=== PATIENT | female | born 1970 | race Caucasian/White ===

== ENCOUNTER 2024-03-23 19:37 | Inpatient (IN) | payer OTHER, SELFPAY ==
[2024-03-23 20:00] VITALS: BP 138/82; PULSE 100; RESP 16; TEMP 36.3; O2SAT 96
[2024-03-23 21:16] VITALS: BMI 23.4
[2024-03-23 21:22] LABS: Alanine Aminotransferase 41 U/L (0-31); Albumin Level 4.2 g/dL (3.5-5.0); Alkaline Phosphatase 81 U/L (39-117); Anion Gap 11 (12-20); Aspartate Amino Transferase 36 U/L (5-31); Bilirubin Total 0.7 mg/dL (0.0-1.0); Blood Urea Nitrogen 15 mg/dL (9-16); Calcium 9.8 mg/dL (8.4-10.2); Carbon Dioxide 25 mmol/L (22-29); Chloride 104 mmol/L (96-108); Creatinine Clr Calc Pharmacy 68.3; Estimated Glomerular Filt Rate > 60; Glucose Random 123 mg/dL (60-115); Potassium 3.8 mmol/L (3.3-5.1); Sodium 136 mmol/L (135-145); Total Protein 7.7 g/dL (6.5-8.0)
--- NOTE | 2024-03-23 23:02 | PC.ADMIT ---
IS A 53 YEAR OLD WHITE [place] FEMALE, HETEROSEXUAL, WHO WAS BIBA FROM [facility] IN [place] AFTER SA VIA TOXIC INGESTION. ARRIVED ON THE UNIT @ 1950 VIA STRECTHER, A/O X 4, AMBULATORY WITH STEADY GAIT, ON A CV. SHE WAS COOPERATIVE WITH ADMISSION ASSESSMENT, DENIES SI/AVH, STATED THIS IS HER 1ST IPLOC AND FEELS THAT SHE DOESN'T NEED THIS LEVEL OF CARE, [facility]. I NEED HELP WITH MY SUBSTANCE ABUSE. STATED LIFE STRESS INCREASED AND SHE FELT OVERWHELMED , NO SIGN OF WITHDRAWAL. MD DELEON AND HOSPITALIST NOTIFIED OF ADMIT. PLACED ON 15 MIN UNIT SAFETY OBSERVATION.
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
--- NOTE | 2024-03-24 11:18 | HO.PM.IMCN ---
History of Present Illness Data of Consult Service Date: 03/24/24 Primary Care Provider: Unknown Physician HPI Reason for consult: Admission H&P Pt is a 53-year-old female with no known significant PMH not on home medications?who is admitted to [facility] psychiatry unit for increasing depression with SI attempt by overdosing on home medication. Pt was apparently found unresponsive by family with a bottle of Benadryl 20 filling mg pills and vodka next to her. Unknown amount of pills and vodka consumed. Medical consult for admission H&P. Pt seen and evaluated on the unit where she denies any past and medical history. Pt reports follows regularly with a PCP for annual exams, but is not on any home medications. Reports kidd both tired and exhausted by her recent experience, but otherwise denies any acute medical complaints. No fever, chills, nausea, vomiting, diarrhea, or abdominal?pain. Denies shortness or breath or difficulty breathing. No cough. Denies chest pain/pressure, palpitations. No headache or acute vision changes. Review of Systems Review of Systems: Pt has no acute medical complaints at this time [facility] Medical History (Updated 03/24/24 @ 15:28 by SASHA Perez) Alcohol dependence Social History Household Members: Spouse and Children Housing: House Do you presently have visiting nurse or other home services: No Patient Tobacco Use Status: Never used Tobacco e-Cigarette/Vaping Use: Never Used Second Hand Smoke Exposure: No service: No Sexual orientation: Straight/Heterosexual Meds Allergies Allergy/AdvReac Type Severity Reaction Status Date / Time Unable to Assess Allergy Verified 03/23/24 19:54 Active Medications: Current Medications Acetaminophen (Acetaminophen 325 Mg Tablet) 650 mg PO Q6H PRN PRN Reason: Headache/Pain Mild Scale (1-3) Al Hydroxide/Mg Hydroxide (Magnesium Hydrox/Alum Hydrox 30 Ml Oral.Susp) 30 ml PO Q6H PRN PRN Reason: Heartburn/Nausea Hydroxyzine HCl (Hydroxyzine Hcl 25 Mg Tablet) 25 mg PO Q6H PRN PRN Reason: Anxiety Magnesium Hydroxide (Milk Of Magnesia 30 Ml Oral.Susp) 30 ml PO DAILY PRN PRN Reason: Constipation Nicotine Polacrilex (Nicotine Polacrilex 2 Mg Gum) 4 mg BUCCAL Q2H PRN PRN Reason: Nicotine Cravings Trazodone HCl (Trazodone Hcl 50 Mg Tablet) 50 mg PO BEDTIME MRX1 PRN PRN Reason: Insomnia Home Medications ?Medication ?Instructions ?Recorded ?Confirmed ?Last Taken ?Type No Known Home Meds 03/23/24 03/23/24 Unknown History Physical Exam Vital Signs and Narrative: Vital Signs: Last Vital Signs Temp 97.4 F 03/23/24 20:00 Pulse 100 03/23/24 20:00 Resp 16 03/23/24 20:00 BP 138/82 03/23/24 20:00 Pulse Ox 96 03/23/24 20:00 O2 Del Method Room Air 03/23/24 20:00 BMI result Body Mass Index 23.4 General: AOx3, no acute distress Resp: CTA bilaterally CVS: S1, S2, RRR GI: +BS, NT, no distention Skin: Warm, dry Neuro: Cranial nerves II-XII grossly intact bilaterally. Motor grossly intact bilaterally Extremities: No edema Psych: Appropriate affect Results Labs 03/23/24 20:53 Labs: Laboratory Results - last 24 hr 03/23/24 20:53 Anion Gap 11 L Estim Creat Clear Calc 68.3 Estimated GFR > 60 Random Glucose 123 H Calcium 9.8 Total Bilirubin 0.7 AST 36 H ALT 41 H Alkaline Phosphatase 81 Total Protein 7.7 Albumin 4.2 Assessment and Plan (1) Medical clearance for psychiatric admission: Status: Acute Plan Pt is a 53-year-old female with no known significant PMH not on home medications?who is admitted to [facility] psychiatry unit for increasing depression with SI attempt by overdosing on home medication. Pt was apparently found unresponsive by family with a bottle of Benadryl 20 filling mg pills and vodka next to her. Unknown amount of pills and vodka consumed. Medical consult for admission H&P. Mood disorder Plan as per Psychiatry Alcohol use disorder Plan as per Addiction Medicine/psychiatry Pt otherwise has no acute medical complaints or chronic medical conditions. Will sign off for now. Thank you for allowing us to participate in the care of this pt. Please re-consult if any acute issue or need arises.
[2024-03-24 13:01] LABS: Estimated Average Glucose 100 mg/dL; Hemoglobin A1C 127.1254 umol/L; Hemoglobin A1c % 5.1 % (<6.0); Total Hemoglobin (HGBA1C) 3947.2735 umol/L
[2024-03-24 13:07] LABS: Cholesterol 251 mg/dL (<200); HDL Cholesterol 81 mg/dL (>40); LDL Cholesterol Calculated 144 mg/dL (<100); Triglycerides 132 mg/dL (<150)
[2024-03-24 13:24] LABS: Free T4 (Free Thyroxine) 1.03 ng/dL (0.71-1.85); Thyroid Stimulating Hormone 0.57 uIU/mL (0.32-4.0)
[2024-03-24 13:38] LABS: Folate 15.8 ng/mL (> or = 4.0); Vitamin B12 > 2000 pg/mL (200-900)
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
== END 2024-03-24 16:55 | disposition home or self-care (01) | DRG 882 ==
PROVIDERS: Admitting Provider Psychiatry & Neurology Psychiatry; Visit Provider Psychiatry & Neurology Psychiatry
DX: F43.25 Adjustment disorder with mixed disturbance of emotions and conduct (principal); F10.20 Alcohol dependence, uncomplicated; Z91.51 Personal history of suicidal behavior
CPT/HCPCS: 36415; 80053; 80061; 82607; 82746; 83036; 84439; 84443

== ENCOUNTER → 2024-03-23 19:37 | Outpatient (BNV) | payer OTHER, SELFPAY | PROVIDERS: Admitting Provider Psychiatry & Neurology Psychiatry; Visit Provider Student in an Organized Health Care Education/Training Program | DX: Z00.8 Encounter for other general examination (principal) | CPT/HCPCS: 99429 ==

== ENCOUNTER → 2024-03-23 19:37 | Outpatient (BNV) | payer OTHER, SELFPAY | PROVIDERS: Admitting Provider Psychiatry & Neurology Psychiatry; Visit Provider Psychiatry & Neurology Psychiatry | DX: F43.25 Adjustment disorder with mixed disturbance of emotions and conduct (principal); F10.90 Alcohol use, unspecified, uncomplicated | CPT/HCPCS: 90792; 99499 ==